=== PATIENT | female | born 1940 | race Caucasian/White ===

== ENCOUNTER 2017-04-02 08:57 | Inpatient (IN) | payer MEDICARE ==
[2017-04-02] MEDS ORDERED: SODIUM CHLORIDE 0.9% 1,000 ML IV STA ×2 (09:10→12:00)
[2017-04-02 09:32] LABS: Glucose,Whole Blood 115 mg/dL (75-99)
--- NOTE | 2017-04-02 09:33 | ED ---
General Adult HPI - General Chief complaint: Syncope Stated complaint: SYNCOPE Time Seen by Provider: 04/02/17 08:59 Source: patient, family, RN notes reviewed, old records reviewed Mode of arrival: wheelchair Limitations: no limitations - History of Present Illness Initial comments: This is a 77-year-old female the ER for evaluation. This patient presents for evaluation regarding syncopal event. Patient has no prior history of syncope, had no complaints other today, currently denies headache chest pain shortness of breath or bowel pain. Normocephalic. No sick contacts and no prior episodes of the same. Patient states she just woke up on the ground. - Related Data Home Medications Medication Instructions Recorded Confirmed Ezetimibe [Zetia] 10 mg PO DAILY 04/02/17 04/02/17 Irbesartan [Avapro] 150 mg PO DAILY 04/02/17 04/02/17 Levothyroxine Sodium [Tirosint] 25 mcg PO DAILY 04/02/17 04/02/17 Pravastatin Sodium [Pravachol] 80 mg PO HS 04/02/17 04/02/17 cycloSPORINE 0.05% OPHTH SOLN 1 applicator BOTH EYES BID 04/02/17 04/02/17 [Restasis] sitaGLIPtin PHOSPHATE [Januvia] 100 mg PO DAILY 04/02/17 04/02/17 Allergies Allergy/AdvReac Type Severity Reaction Status Date / Time No Known Allergies Allergy Verified 04/02/17 09:41 Review of Systems ROS Statement: Those systems with pertinent positive or pertinent negative responses have been documented in the HPI. ROS Other: All systems not noted in ROS Statement are negative. Past Medical History Past Medical History: Hyperlipidemia, Hypertension History of Any Multi-Drug Resistant Organisms: None Reported Past Surgical History: Hysterectomy Past Psychological History: No Psychological Hx Reported Smoking Status: Never smoker Past Alcohol Use History: Rare Past Drug Use History: None Reported General Exam Limitations: no limitations General appearance: alert, in no apparent distress Head exam: Present: atraumatic, normocephalic, normal inspection Eye exam: Present: normal appearance, PERRL, EOMI. Absent: scleral icterus, conjunctival injection, periorbital swelling ENT exam: Present: normal exam, mucous membranes moist Neck exam: Present: normal inspection. Absent: tenderness, meningismus, lymphadenopathy Respiratory exam: Present: normal lung sounds bilaterally. Absent: respiratory distress, wheezes, rales, rhonchi, stridor Cardiovascular Exam: Present: regular rate, normal rhythm, normal heart sounds. Absent: systolic murmur, diastolic murmur, rubs, gallop, clicks GI/Abdominal exam: Present: soft, normal bowel sounds. Absent: distended, tenderness, guarding, rebound, rigid Extremities exam: Present: normal inspection, full ROM, normal capillary refill. Absent: tenderness, pedal edema, joint swelling, calf tenderness Back exam: Present: normal inspection Neurological exam: Present: alert, oriented X3, CN II-XII intact Psychiatric exam: Present: normal affect, normal mood Skin exam: Present: warm, dry, intact, normal color. Absent: rash Course Vital Signs 04/02/17 04/02/17 08:58 10:30 Temperature 97.5 F L 98.0 F Pulse Rate 66 66 Respiratory 16 14 Rate Blood Pressure 175/69 138/62 O2 Sat by Pulse 96 98 Oximetry - Reevaluation(s) Reevaluation #1: 04/02/17 12:04 Patient without syncopal event complaint here emergency room EKG Findings - EKG Comments: EKG Findings:: EKG shows normal sinus rhythm bifascicular block rate of 66, WV 177, QRS 116, QTC 457 Medical Decision Making - Medical Decision Making 37 female he has a evaluation of this syncopal event. No PE, no causative agent reason for syncope found. Patient will be admitted for IV hydration treatment of urinary tract infection evaluation of CT findings - Lab Data Result diagrams: 04/02/17 09:33 04/02/17 09:33 Lab Results 04/02/17 04/02/17 04/02/17 Range/Units 09:11 09:33 09:33 WBC 7.8 (3.8-10.6) k/uL RBC 4.41 (3.80-5.40) m/uL Hgb 14.0 (11.4-16.0) gm/dL Hct 40.3 (34.0-46.0) % MCV 91.4 (80.0-100.0) fL MCH 31.7 (25.0-35.0) pg MCHC 34.7 (31.0-37.0) g/dL RDW 13.3 (11.5-15.5) % Plt Count 287 (150-450) k/uL Neutrophils % 80 % Lymphocytes % 12 % Monocytes % 5 % Eosinophils % 1 % Basophils % 0 % Neutrophils # 6.2 (1.3-7.7) k/uL Lymphocytes # 0.9 L (1.0-4.8) k/uL Monocytes # 0.4 (0-1.0) k/uL Eosinophils # 0.1 (0-0.7) k/uL Basophils # 0.0 (0-0.2) k/uL PT (9.0-12.0) sec INR (<1.2) APTT (22.0-30.0) sec D-Dimer (<0.60) mg/L FEU Sodium (137-145) mmol/L Potassium (3.5-5.1) mmol/L Chloride (98-107) mmol/L Carbon Dioxide (22-30) mmol/L Anion Gap mmol/L BUN (7-17) mg/dL Creatinine (0.52-1.04) mg/dL Est GFR (MDRD) Af Amer (>60 ml/min/1.73 sqM) Est GFR (MDRD) Non-Af (>60 ml/min/1.73 sqM) Glucose (74-99) mg/dL POC Glucose (mg/dL) 115 H (75-99) mg/dL POC Glu [employer] Fueling Supervisor ID Andrzej, Donna Calcium (8.4-10.2) mg/dL Phosphorus (2.5-4.5) mg/dL Magnesium (1.6-2.3) mg/dL Total Bilirubin (0.2-1.3) mg/dL AST (14-36) U/L ALT (9-52) U/L Alkaline Phosphatase (38-126) U/L Total Creatine Kinase 67 (30-135) U/L CK-MB (CK-2) 1.6 (0.0-2.4) ng/mL CK-MB (CK-2) Rel Index 2.4 Troponin I <0.012 (0.000-0.034) ng/mL Total Protein (6.3-8.2) g/dL Albumin (3.5-5.0) g/dL Urine Color Urine Appearance (Clear) Urine pH (5.0-8.0) Ur Specific [place] (1.001-1.035) Urine Protein (Negative) Urine Glucose (UA) (Negative) Urine Ketones (Negative) Urine Blood (Negative) Urine Nitrite (Negative) Urine Bilirubin (Negative) Urine Urobilinogen (<2.0) mg/dL Ur Leukocyte Esterase (Negative) Urine RBC (0-5) /hpf Urine WBC (0-5) /hpf Ur Squamous Epith Cells (0-4) /hpf Urine Mucus (None) /hpf 04/02/17 04/02/17 04/02/17 Range/Units 09:33 09:33 10:33 WBC (3.8-10.6) k/uL RBC (3.80-5.40) m/uL Hgb (11.4-16.0) gm/dL Hct (34.0-46.0) % MCV (80.0-100.0) fL MCH (25.0-35.0) pg MCHC (31.0-37.0) g/dL RDW (11.5-15.5) % Plt Count (150-450) k/uL Neutrophils % % Lymphocytes % % Monocytes % % Eosinophils % % Basophils % % Neutrophils # (1.3-7.7) k/uL Lymphocytes # (1.0-4.8) k/uL Monocytes # (0-1.0) k/uL Eosinophils # (0-0.7) k/uL Basophils # (0-0.2) k/uL PT 10.4 (9.0-12.0) sec INR 1.0 (<1.2) APTT 22.0 (22.0-30.0) sec D-Dimer 5.61 H (<0.60) mg/L FEU Sodium 136 L (137-145) mmol/L Potassium 3.9 (3.5-5.1) mmol/L Chloride 100 (98-107) mmol/L Carbon Dioxide 28 (22-30) mmol/L Anion Gap 8 mmol/L BUN 15 (7-17) mg/dL Creatinine 0.60 (0.52-1.04) mg/dL Est GFR (MDRD) Af Amer >60 (>60 ml/min/1.73 sqM) Est GFR (MDRD) Non-Af >60 (>60 ml/min/1.73 sqM) Glucose 98 (74-99) mg/dL POC Glucose (mg/dL) (75-99) mg/dL POC Glu [employer]actor Fueling Supervisor ID Calcium 8.9 (8.4-10.2) mg/dL Phosphorus 3.7 (2.5-4.5) mg/dL Magnesium 2.0 (1.6-2.3) mg/dL Total Bilirubin 0.4 (0.2-1.3) mg/dL AST 20 (14-36) U/L ALT 33 (9-52) U/L Alkaline Phosphatase 56 (38-126) U/L Total Creatine Kinase (30-135) U/L CK-MB (CK-2) (0.0-2.4) ng/mL CK-MB (CK-2) Rel Index Troponin I (0.000-0.034) ng/mL Total Protein 6.5 (6.3-8.2) g/dL Albumin 3.9 (3.5-5.0) g/dL Urine Color Light Yellow Urine Appearance Clear (Clear) Urine pH 7.5 (5.0-8.0) Ur Specific [place] 1.007 (1.001-1.035) Urine Protein Negative (Negative) Urine Glucose (UA) Negative (Negative) Urine Ketones Negative (Negative) Urine Blood Negative (Negative) Urine Nitrite Negative (Negative) Urine Bilirubin Negative (Negative) Urine Urobilinogen <2.0 (<2.0) mg/dL Ur Leukocyte Esterase Large H (Negative) Urine RBC 3 (0-5) /hpf Urine WBC 18 H (0-5) /hpf Ur Squamous Epith Cells 2 (0-4) /hpf Urine Mucus Rare H (None) /hpf - Radiology Data Radiology results: report reviewed (Chest x-ray and CT chest negative for acute disease, patient does have likely masslike structures), image reviewed Disposition Clinical Impression: Vasovagal syncope, Syncope and collapse, UTI (urinary tract infection), Weakness Disposition: ADMITTED IP TO THIS [facility] Condition: Fair Referrals: Nonstaff,Physician [Primary Care Provider] - 1-2 days
[2017-04-02 09:40] LABS: Basophils % (A) 0 %; CH 31.1; CHCM 34.1; Eosinophils # (A) 0.1 k/uL (0-0.7); Eosinophils % (A) 1 %; HCT 40.3 % (34.0-46.0); HDW 2.24; Luc # (Auto) 0.15; Luc % (Auto) 2; Lymphocytes # (A) 0.9 k/uL (1.0-4.8); Lymphocytes % (A) 12 %; MCH 31.7 pg (25.0-35.0); MCHC 34.7 g/dL (31.0-37.0); MCV 91.4 fL (80.0-100.0); Mean Platelet Volume 6.8; Monocytes # (A) 0.4 k/uL (0-1.0); Monocytes % (A) 5 %; Neutrophils # (A) 6.2 k/uL (1.3-7.7); Neutrophils % (A) 80 %; RBC 4.41 m/uL (3.80-5.40); RDW 13.3 % (11.5-15.5); WBC 7.8 k/uL (3.8-10.6); WBC (Perox) 7.64
[2017-04-02 09:49] LABS: ALT 33 U/L (9-52); AST 20 U/L (14-36); Alkaline Phosphatase 56 U/L (38-126); Anion Gap 8 mmol/L; Blood Urea Nitrogen 15 mg/dL (7-17); Calcium 8.9 mg/dL (8.4-10.2); Carbon Dioxide 28 mmol/L (22-30); Chloride 100 mmol/L (98-107); Glucose 98 mg/dL (74-99); Non-African American GFR(MDRD) >60 (>60 ml/min/1.73 sqM); Phosphorous 3.7 mg/dL (2.5-4.5); Potassium 3.9 mmol/L (3.5-5.1); Sodium 136 mmol/L (137-145); Total Bilirubin 0.4 mg/dL (0.2-1.3); Total Protein 6.5 g/dL (6.3-8.2)
[2017-04-02 09:56] LABS: Prothrombin Time 10.4 sec (9.0-12.0)
--- NOTE | 2017-04-02 09:58 | XR ---
EXAMINATION TYPE: XR chest 2V DATE OF EXAM: 04/02/2017 COMPARISON: NONE INDICATION: Weakness, syncope TECHNIQUE: Frontal and lateral views of the chest are obtained. FINDINGS: The heart size is normal. The pulmonary vasculature is normal. Large calcified lymph nodes. He present in the right mediastinum. Suspicious infiltrates in the lung bonner are not identified.. IMPRESSION: 1. No acute pulmonary process. 2. Calcified lymphadenopathies mediastinum
[2017-04-02 10:03] LABS: Creatine Kinase 67 U/L (30-135)
[2017-04-02 10:14] LABS: Creatine Kinase MB 1.6 ng/mL (0.0-2.4); Troponin I <0.012 ng/mL (0.000-0.034)
[2017-04-02] MEDS ORDERED: RX INFO: IV CONTRAST WAS GIVEN 1 EACH MISC MISCELLANE PRN (10:39)
[2017-04-02 10:51] LABS: Appearance,Urine Clear (Clear); Bilirubin,Urine Negative (Negative); Glucose,Urine (UA) Negative (Negative); Ketones,Urine Negative (Negative); Leukocyte Esterase,Urine Large (Negative); Mucus,Urine Rare /hpf; Nitrite,Urine Negative (Negative); PH, Urine 7.5 (5.0-8.0); Particle Count 3567; Protein,Urine Negative (Negative); RBC,Urine 3 /hpf (0-5); Specific Gravity,Urine 1.007 (1.001-1.035); Squamous Epithelial Cell,Urine 2 /hpf (0-4); UA Billing (MACRO vs. MICRO) MICRO; Urobilinogen,Urine <2.0 mg/dL (<2.0); WBC,Urine 18 /hpf (0-5)
--- NOTE | 2017-04-02 11:55 | CT ---
EXAMINATION TYPE: CT angio chest DATE OF EXAM: 04/02/2017 COMPARISON: NONE HISTORY: syncope CT DLP: 394 mGycm CONTRAST: CT chest with contrast and 3D reconstruction with MIP imaging is performed with IV Contrast, patient injected with 100 mL of Omnipaque 350. Contrast-enhanced CT of the chest was performed through the course of the pulmonary arteries with catherine g and mediastinal window settings submitted. 3D reconstruction with MIP imaging was also performed. PULMONARY ARTERIES: The pulmonary arteries and their major tributaries are patent. I do not see roney dence for sizable filling defect to suggest pulmonary embolic process. LUNGS: The lungs are clear and free of infiltrate. Scattered dependent atelectasis is noted. No pulmo nary nodule or mass is detected. No pleural effusion. MEDIASTINUM: Thoracic aorta is of normal caliber . The heart is not enlarged. No evidence for media stinal mass. No mediastinal lymph nodes greater than 1cm. HILAR STRUCTURES: No evidence for mass. No hilar lymph nodes greater than 1 cm. UPPER ABDOMEN: Masslike area within the central portion of the liver. Masslike area in the region of the pancreatic body measuring 3.4 cm suspicious for malignancy. Dedicated evaluation of the abdomen a nd pelvis is advised. IMPRESSION: 1. No evidence for Pulmonary embolism at this time. 2.Masslike area in the region of the pancreatic body measuring 3.4 cm suspicious for malignancy. 3.Masslike area within the central portion of the liver.
[2017-04-02] MEDS ORDERED: SODIUM CHLORIDE 0.9% 1,000 ML IV ONE (12:02)
--- NOTE | 2017-04-02 19:02 | P.GSCN ---
History of Present Illness Consult date: 04/02/17 Reason for Consult: Abdominal pain History of present illness: This a 77-year-old female with Dr. Devendra Fernandez service. Patient was admitted due to syncope and fall. She was worked up found have UTI. She has some mild lower quadrant abdominal pain. She states her pain is minimal. Review of Systems - Constitutional Reports as per HPI Past Medical History Past Medical History: Hyperlipidemia, Hypertension Additional Past Medical History / Comment(s): past broken rt foot no sx just casted,polymyalgia, migraines in the past. "forgetfull at times",constipatin History of Any Multi-Drug Resistant Organisms: None Reported Past Surgical History: Hysterectomy Additional Past Surgical History / Comment(s): upper dental implants.recent sx on her gums, cosmetic sx face and eye lids, jasper cataracts, rt knee had fluid drained off of it Past Anesthesia/Blood Transfusion Reactions: No Reported Reaction Smoking Status: Never smoker - Past Family History Father Family Medical History: Myocardial Infarction (NM) Mother Family Medical History: Dementia Additional Family Medical History / Comment(s): early onset alzhiemers Medications and Allergies Home Medications Medication Instructions Recorded Confirmed Type Ezetimibe [Zetia] 10 mg PO DAILY 04/02/17 04/02/17 History Irbesartan [Avapro] 150 mg PO DAILY 04/02/17 04/02/17 History Levothyroxine Sodium [Tirosint] 25 mcg PO DAILY 04/02/17 04/02/17 History Pravastatin Sodium [Pravachol] 80 mg PO HS 04/02/17 04/02/17 History cycloSPORINE 0.05% OPHTH SOLN 1 applicator BOTH EYES BID 04/02/17 04/02/17 History [Restasis] sitaGLIPtin PHOSPHATE [Januvia] 100 mg PO DAILY 04/02/17 04/02/17 History Allergies Allergy/AdvReac Type Severity Reaction Status Date / Time No Known Allergies Allergy Verified 04/02/17 09:41 Surgical - Exam Vital Signs Temp Pulse Resp BP Pulse Ox 97.5 F L 66 16 175/69 96 04/02/17 08:58 04/02/17 08:58 04/02/17 08:58 04/02/17 08:58 04/02/17 08:58 - General well developed, no distress - Eyes PERRL - Neck no masses - Respiratory normal expansion - Cardiovascular Rhythm: regular - Abdomen Abdomen: soft, non tender Results - Labs 04/02/17 09:33 04/02/17 09:33 Abnormal Lab Results - Last 24 Hours (Table) 04/02/17 04/02/17 04/02/17 Range/Units 09:11 09:33 09:33 Lymphocytes # 0.9 L (1.0-4.8) k/uL D-Dimer (<0.60) mg/L FEU Sodium 136 L (137-145) mmol/L POC Glucose (mg/dL) 115 H (75-99) mg/dL Ur Leukocyte Esterase (Negative) Urine WBC (0-5) /hpf Urine Mucus (None) /hpf 04/02/17 04/02/17 Range/Units 09:33 10:33 Lymphocytes # (1.0-4.8) k/uL D-Dimer 5.61 H (<0.60) mg/L FEU Sodium (137-145) mmol/L POC Glucose (mg/dL) (75-99) mg/dL Ur Leukocyte Esterase Large H (Negative) Urine WBC 18 H (0-5) /hpf Urine Mucus Rare H (None) /hpf Microbiology - Last 24 Hours (Table) 04/02/17 10:33 Urine Culture - Preliminary Urine,Voided Diabetes panel 04/02/17 Range/Units 09:33 Sodium 136 L (137-145) mmol/L Potassium 3.9 (3.5-5.1) mmol/L Chloride 100 (98-107) mmol/L Carbon Dioxide 28 (22-30) mmol/L BUN 15 (7-17) mg/dL Creatinine 0.60 (0.52-1.04) mg/dL Glucose 98 (74-99) mg/dL Calcium 8.9 (8.4-10.2) mg/dL AST 20 (14-36) U/L ALT 33 (9-52) U/L Alkaline Phosphatase 56 (38-126) U/L Total Protein 6.5 (6.3-8.2) g/dL Albumin 3.9 (3.5-5.0) g/dL Calcium panel 04/02/17 Range/Units 09:33 Calcium 8.9 (8.4-10.2) mg/dL Phosphorus 3.7 (2.5-4.5) mg/dL Albumin 3.9 (3.5-5.0) g/dL Pituitary panel 04/02/17 Range/Units 09:33 Sodium 136 L (137-145) mmol/L Potassium 3.9 (3.5-5.1) mmol/L Chloride 100 (98-107) mmol/L Carbon Dioxide 28 (22-30) mmol/L BUN 15 (7-17) mg/dL Creatinine 0.60 (0.52-1.04) mg/dL Glucose 98 (74-99) mg/dL Calcium 8.9 (8.4-10.2) mg/dL Adrenal panel 04/02/17 Range/Units 09:33 Sodium 136 L (137-145) mmol/L Potassium 3.9 (3.5-5.1) mmol/L Chloride 100 (98-107) mmol/L Carbon Dioxide 28 (22-30) mmol/L BUN 15 (7-17) mg/dL Creatinine 0.60 (0.52-1.04) mg/dL Glucose 98 (74-99) mg/dL Calcium 8.9 (8.4-10.2) mg/dL Total Bilirubin 0.4 (0.2-1.3) mg/dL AST 20 (14-36) U/L ALT 33 (9-52) U/L Alkaline Phosphatase 56 (38-126) U/L Total Protein 6.5 (6.3-8.2) g/dL Albumin 3.9 (3.5-5.0) g/dL Assessment and Plan Plan: Abdominal pain mostly related to UTI. Patient is doing better. She'll be observed. Her UTIs being treated with antibiotics.
--- NOTE | 2017-04-02 19:16 | ECHOF ---
Referral Reason:syncope MEASUREMENTS -------- HEIGHT: 165.1 cm WEIGHT: 50.8 kg BP: IVSd: 1.2 cm (0.6 - 1.1) LVIDd: 3.9 cm (3.9 - 5.3) LVPWd: 1.2 cm (0.6 - 1.1) IVSs: 1.5 cm LVIDs: 2.3 cm LVPWs: 1.2 cm LA Diam: 3.8 cm (2.7 - 3.8) Ao Diam: 3.0 cm (2.0 - 3.7) AV Cusp: 1.5 cm (1.5 - 2.6) LA Diam: 4.1 cm (2.7 - 3.8) MV EXCURSION: 19.783 mm (> 18.000) MV EF SLOPE: 40 mm/s (70 - 150) EPSS: 1.3 cm MV E Marco: 0.57 m/s MV DecT: 328 ms MV A Marco: 0.92 m/s MV E/A Ratio: 0.62 AR PHT: 590 ms RAP: 5.00 mmHg RVSP: 24.98 mmHg FINDINGS -------- Sinus rhythm. This was a technically adequate study. The left ventricular size is normal. There is mild concentric left ventricular hypertrophy. Overall left ventricular systolic function is normal with, an EF between 55 - 60 %. The right ventricle is normal in size. The left atrial size is normal. The right atrial size is normal. The aortic valve is trileaflet and appears structurally normal. There is mild aortic regurgitation. Mild mitral annular calcification present. Mild mitral regurgitation is present. Mild tricuspid regurgitation present. There is no evidence of pulmonary hypertension. The right ventricular systolic pressure, as measured by Doppler, is 24.98mmHg. Trace/mild (physiologic) pulmonic regurgitation. The aortic root size is normal. There is no pericardial effusion. CONCLUSIONS -------- 1. Sinus rhythm. 2. Mild tricuspid regurgitation present. 3. There is no evidence of pulmonary hypertension. 4. Trace/mild (physiologic) pulmonic regurgitation. 5. The aortic root size is normal. 6. There is no pericardial effusion. 7. This was a technically adequate study. 8. There is mild concentric left ventricular hypertrophy. 9. Overall left ventricular systolic function is normal with, an EF between 55 - 60 %. 10. The left atrial size is normal. 11. The aortic valve is trileaflet and appears structurally normal. 12. There is mild aortic regurgitation. 13. Mild mitral annular calcification present. 14. Mild mitral regurgitation is present. BEAD FORMING MACHINE OPERATOR: Adriane Lopez RDCS
--- NOTE | 2017-04-02 19:43 | XR ---
EXAMINATION TYPE: XR knee complete RT DATE OF EXAM: 04/02/2017 COMPARISON: NONE HISTORY: Pain TECHNIQUE: 3 views FINDINGS: There is calcification of the menisci. There is spurring of femoral and tibial condyles. I see no fracture nor dislocation. There is small knee joint effusion. IMPRESSION: Osteoarthritis and pseudogout. No fracture.
--- NOTE | 2017-04-02 19:49 | XR ---
EXAMINATION TYPE: XR hand complete RT DATE OF EXAM: 04/02/2017 COMPARISON: NONE HISTORY: Pain TECHNIQUE: 3 views FINDINGS: There is irregular appearance of the ulnar styloid process suggestive of nondisplaced fract ure. There is moderate spurring at the first carpometacarpal joint. There is mild narrowing of IP dominic nts with spurring. There are no erosions. There is granular cartilage calcification. IMPRESSION: Osteoarthritic changes. Possible nondisplaced fracture ulnar styloid process. No displace d fracture seen.
--- NOTE | 2017-04-02 20:26 | CT ---
EXAMINATION TYPE: CT brain wo con DATE OF EXAM: 04/02/2017 COMPARISON: NONE HISTORY: Fell today. Neck pain headache CT DLP: mGycm Automated exposure control for dose reduction was used. FINDINGS: There is cerebral cortical atrophy. There is no mass effect nor midline shift. There is no sign of in tracranial hemorrhage. There is calcification in the left maxillary sinus. Calvarium is intact. IMPRESSION: CEREBRAL ATROPHY. NO ACUTE INTRACRANIAL ABNORMALITY. DENSE CALCIFICATION IN THE PARTLY VISUALIZED LEF T MAXILLARY SINUS CONSISTENT WITH AN OSTEOMA.
[2017-04-02] MEDS: HYDROcodone/APAP 5-325MG 1 EACH TAB PO PRN (20:30)
--- NOTE | 2017-04-02 20:45 | CT ---
EXAMINATION TYPE: CT CervThoracic spine wo con DATE OF EXAM: 04/02/2017 COMPARISON: NONE HISTORY: Fall with neck pain and back pain CT DLP: mGycm Automated exposure control for dose reduction was used. FINDINGS: The cervical and thoracic vertebra have normal alignment. There is no subluxation. There is degenerat brandi disc space narrowing throughout the thoracic and cervical spine. I see no definite compression fr acture. I see no significant narrowing of the cervical and thoracic spinal canal. There is no thoraci c paraspinal mass. I see no focal bone destruction. The posterior elements are intact. The skull base appears intact. IMPRESSION: MODERATE MULTILEVEL SPONDYLOSIS IN THE CERVICAL AND THORACIC SPINE. NO COMPRESSION FRACTURE SEEN. NO FRACTURE SEEN. CALCIFIED SPLENIC GRANULOMATA ARE NOTED. NONOBSTRUCTING MEDULLARY RENAL CALCIFICATION IS NOTED THAT C OULD RELATE TO MILD NEPHROCALCINOSIS. Interstitial infiltrates and atelectasis is noted at both lung bases.
[2017-04-02] MEDS: PRAVASTATIN SODIUM 80 MG TAB PO SCH (22:15)
[2017-04-02] MEDS: cycloSPORINE 0.05% OPHTH 0.4 ML DROPERETTE BOTH EYES SCH (22:15)
--- NOTE | 2017-04-02 22:34 | HP ---
CHIEF COMPLAINT: Irjsczr[age]ddhqr-efst-old white female with syncope. HISTORY OF PRESENT ILLNESS: This is a 77-year-old white female admitted through the ER with a syncopal event and prior history of syncope. She denied any chest pain or shortness of breath. No prior ( ) she just woke up on the ground. She will need to be worked up for a seizure. She was also found in the ER to have possible pancreatic mass with a liver mass. Home medications include: 1. Zetia. 2. Avapro. 3. Tirosint. 4. Pravachol. 5. Cyclosporin. 6. Januvia. ALLERGIES: NEGATIVE. Fourteen-point review of systems negative except as mentioned in HPI. PAST MEDICAL HISTORY: 1. Dyslipidemia. 2. Hypertension. 3. Diabetes mellitus. 4. Prior hysterectomy. Never smoked. No alcohol. PHYSICAL EXAM: Vital signs are reviewed. GENERAL: Alert, oriented x3. OPHTHALMOLOGIC: Pupils equal, round and reactive to light and accommodation. ENT: External ear canals normal. PSYCH: Negative meningeal signs. Fair mood and affect. RESPIRATORY: Normal lung sounds. No wheezes, rhonchi or stridor. HEART: Regular rate and rhythm. No ( ) sounds or murmurs. GI: Soft. Normal bowel sounds ( ) guarding or rigidity. EXTREMITIES: Full range of motion ( ) normal to inspection. NEUROLOGIC: Alert and oriented x3. SKIN: Warm, dry, intact. Temperature 97 to 98. Pulse in 60s. Respiration 14 to 16. Blood pressure 130s to 170s over 62 to 69. Oxygen 96% to 98% on room air. EKG shows sinus rhythm. CT scan of the chest is negative for PE but positive for pancreatic mass. She also had a possible urinary tract infection. White count 7.8, hemoglobin 14.0. Sodium 136, potassium 3.9. Glucose 115. Troponins are negative. D-dimer is 5.6 with a negative PE on the CT scan. UA shows large leukocyte esterase, 18 white cells, ( ) red cells. LFTs are normal. Possible mass-like structure in the liver. ASSESSMENT: 1. Vasovagal syncope. Rule out seizure. 2. Urinary tract infection. Treat with IV antibiotics. 3. Generalized weakness. 4. Possible liver mass. 5. Possible pancreatic mass. Surgical consult is pending. Will order CA19.9, alpha fetoprotein. Await surgical consultation as well as cardiology consultation for syncope. MTDD
[2017-04-03] MEDS: HYDROcodone/APAP 5-325MG 1 EACH TAB PO PRN ×3 (02:10→15:36)
[2017-04-03] MEDS ORDERED: ENOXAPARIN 40 MG/0.4 ML SYRINGE SQ SCH (09:00)
[2017-04-03] MEDS: LEVOTHYROXINE 25 MCG TAB PO SCH (09:07)
[2017-04-03] MEDS: LINAGLIPTIN 5 MG TABLET PO SCH (09:11)
[2017-04-03] MEDS: EZETIMIBE 10 MG TAB PO SCH (09:11)
[2017-04-03] MEDS: LOSARTAN 50 MG TAB PO SCH (09:11)
[2017-04-03] MEDS: CHLORTHALIDONE 25 MG TAB PO SCH (09:12)
[2017-04-03] MEDS: cycloSPORINE 0.05% OPHTH 0.4 ML DROPERETTE BOTH EYES SCH ×2 (09:12→20:56)
--- NOTE | 2017-04-03 09:21 | US ---
EXAMINATION TYPE: US abdomen complete DATE OF EXAM: 04/02/2017 COMPARISON: NONE CLINICAL HISTORY: liver/pancreatic mass. EXAM MEASUREMENTS: Liver Length: 16.7 cm Gallbladder Wall: 0.2 cm CBD: 0.3 cm Spleen: 10.3 cm Right Kidney: 10.5 x 3.7 x 5.3 cm Left Kidney: 11.5 x 4.7 x 5.1 cm Pancreas: Heterogenous lesion in the neck measuring approximately 3.8 x 3.7 x 2.5 cm Liver: Hypoechoic lesion noted in the liver measuring approximately 4.0 x 3.6 x 3.0 cm Gallbladder: wnl Evidence for sonographic Wiley's sign: No CBD: wnl Spleen: multiple echogenic calcifications noted Right Kidney: wnl Left Kidney: wnl Upper IVC: wnl Abd Aorta: wnl The liver is homogenous with a hypoechoic lesion measuring 4.0 x 3.6 x 3.0 cm. The intrahepatic port ion of the IVC and proximal abdominal aorta are within normal limits. There is no evidence of cholel ithiasis. Common bile duct is unremarkable. The visualized portions of the pancreas are homogenous except for one lesion that is heterogenous measuring 3.8 x 3.7 x 2.5 cm. The spleen has multiple ech ogenic calcifications. Kidneys are symmetric and free of hydronephrosis. No renal lesions are seen. Impression: 1. Hepatic mass is noted. Orally for possible metastatic disease or primary hepatocellular carcinoma. 2. Mass with central area of cavitation in the region of the pancreatic neck. 3. Splenic granulomas.
--- NOTE | 2017-04-03 10:49 | P.CRDCN ---
History of Present Illness Consult date: 04/03/17 History of present illness: This is a 77-year-old female with history of hypertensive cardiovascular disease who was admitted to the hospital following a syncopal episode. Apparently she was sitting on a high stool and was doing a puzzle. She apparently was done with possibly one was in the process of getting up. Next thing she knew was she felt the ground and sustained some soft tissue injuries. She doesn't recall having any chest pain, shortness of breath, dizziness prior to this incident. However, over the last couple of weeks patient has been having some lightheadedness, especially when she gets up quickly. Since admission here patient was mostly in sinus rhythm with evidence of right bundle- branch block and also left axis deviation. During the night patient developed high degree AV block with pauses of about 24 seconds with nonconducted P waves. At times it appears to be Wenckebach phenomenon. Since admission patient also had computed tomography scan of the chest which was negative for pulmonary emboli. However, there was a suspicious pancreatic mass. Patient had ultrasound of the abdomen this morning and there appears to be some suspicion lesion in the pancreas and also in the liver. Her electrolytes are within normal limits Review of Systems REVIEW OF SYSTEMS: CONSTITUTIONAL:. Patient is doing well. No complaints of fever or chills EYES: Denies diplopia, blurring of vision EARS, NOSE, MOUTH, THROAT: Denies headaches, denies sore throat. CARDIOVASCULAR: Per HPI RESPIRATORY: Denies shortness of breath, denies cough. GASTROINTESTINAL: Complaining of some abdominal discomfort GENITOURINARY: Denies hematuria, denies infections. MUSKULOSKELETAL: Denies pain, denies swelling. Denies any cramps or claudication INTEGUMENTARY: Denies rash, denies eczema. NEUROLOGICAL: Denies focal weakness, or visual disturbance. Denies any dizziness or syncope PSYCHIATRIC: Denies anxiety, denies depression. HEMATOLOGIC/LYMPHATIC: Denies any bleeding, denies enlarged lymph nodes. Past Medical History Past Medical History: Hyperlipidemia, Hypertension Additional Past Medical History / Comment(s): past broken rt foot no sx just casted,polymyalgia, migraines in the past. "forgetfull at times",constipatin History of Any Multi-Drug Resistant Organisms: None Reported Past Surgical History: Hysterectomy Additional Past Surgical History / Comment(s): upper dental implants.recent sx on her gums, cosmetic sx face and eye lids, jasper cataracts, rt knee had fluid drained off of it Past Anesthesia/Blood Transfusion Reactions: No Reported Reaction Smoking Status: Never smoker - Past Family History Father Family Medical History: Myocardial Infarction ([place]) Mother Family Medical History: Dementia Additional Family Medical History / Comment(s): early onset alzhiemers Medications and Allergies Home Medications Medication Instructions Recorded Confirmed Type Ezetimibe [Zetia] 10 mg PO DAILY 04/02/17 04/02/17 History Irbesartan [Avapro] 150 mg PO DAILY 04/02/17 04/02/17 History Levothyroxine Sodium [Tirosint] 25 mcg PO DAILY 04/02/17 04/02/17 History Pravastatin Sodium [Pravachol] 80 mg PO HS 04/02/17 04/02/17 History cycloSPORINE 0.05% OPHTH SOLN 1 applicator BOTH EYES BID 04/02/17 04/02/17 History [Restasis] sitaGLIPtin PHOSPHATE [Januvia] 100 mg PO DAILY 04/02/17 04/02/17 History Allergies Allergy/AdvReac Type Severity Reaction Status Date / Time No Known Allergies Allergy Verified 04/02/17 09:41 Physical Exam Vitals: Vital Signs Temp Pulse Pulse Resp BP BP Pulse Ox 04/03/17 07:00 97.4 F L 74 20 117/56 95 04/02/17 23:06 68 18 04/02/17 23:00 98 F 85 16 120/57 95 04/02/17 15:00 97.9 F 68 18 154/70 98 04/02/17 12:57 97.6 F 67 18 140/63 96 Intake and Output 04/02/17 04/03/17 04/03/17 22:59 06:59 14:59 Intake Total 100 800 Balance 100 800 Intake: Intake, IV Titration 100 800 Amount Sodium Chloride 0.9% 1, 100 800 000 ml @ 100 mls/hr IV . Q10H ONE Rx#:[id number] Other: Voiding Method Toilet Toilet # Voids 1 GENERAL EXAM: Patient is alert and oriented and doesn't appear to be in any acute distress HEENT: Normocephalic. Normal reaction of pupils, equal size, normal range of extraocular motion. No erythema or exudates in the throat. NECK: No masses, no nuchal rigidity. CHEST: No chest wall deformity. LUNGS: Equal air entry with no crackles or wheeze. HEART: S1 and S2 normal with no audible mumurs or gallops. Regular rhythm, femorals equal on both sides.. ABDOMEN: Deferred. SKIN: No rashes CENTRAL NERVOUS SYSTEM: No focal deficits. EXTREMITIES: No cyanosis, clubbing or edema. Results 04/02/17 09:33 04/02/17 09:33 Current Medications Generic Name Dose Route Start Last Admin Trade Name Freq PRN Reason Stop Dose Admin Hydrocodone Bitart/Acetaminophen 1 each 04/02/17 18:22 04/03/17 09:05 [place] 5-325 PO 1 each Q6HR PRN Administration Pain Chlorthalidone 25 mg 04/03/17 09:00 04/03/17 09:12 [place] PO 25 mg DAILY RENEA Administration Cyclosporine 1 drops 04/02/17 21:00 04/03/17 09:12 Restasis 0.05% Ophth Soln BOTH EYES 1 drops BID RENEA Administration Ezetimibe 10 mg 04/03/17 09:00 04/03/17 09:11 Zetia PO 10 mg DAILY RENEA Administration Enoxaparin Sodium 40 mg 04/03/17 09:00 04/03/17 09:11 Lovenox SQ 40 mg DAILY RENEA Administration Ceftriaxone Sodium 1,000 mg/ 50 mls @ 100 mls/hr 04/03/17 12:00 Sodium Chloride IVPB Q24H RENEA Ibuprofen 800 mg 04/02/17 18:22 Motrin PO TID PRN Pain Levothyroxine Sodium 25 mcg 04/03/17 06:30 04/03/17 09:07 Synthroid PO 25 mcg DAILY@0630 RENEA Administration Linagliptin 5 mg 04/03/17 09:00 04/03/17 09:11 Tradjenta PO 5 mg DAILY RENEA Administration Losartan Potassium 50 mg 04/03/17 09:00 04/03/17 09:11 Cozaar PO 50 mg DAILY RENEA Administration Miscellaneous Information 1 each 04/02/17 10:39 04/02/17 12:54 Rx Info: Iv Contrast Was Given MISCELLANE 04/04/17 10:39 1 each DAILY PRN Administration Per Protocol Pravastatin Sodium 80 mg 04/02/17 21:00 04/02/17 22:15 Pravachol PO 80 mg HS RENEA Administration Intake and Output 04/02/17 04/03/17 04/03/17 22:59 06:59 14:59 Intake Total 100 800 Balance 100 800 Intake: Intake, IV Titration 100 800 Amount Sodium Chloride 0.9% 1, 100 800 000 ml @ 100 mls/hr IV . Q10H ONE Rx#:[id number] Other: Voiding Method Toilet Toilet # Voids 1 04/02/17 09:33 04/02/17 09:33 EKG Interpretations (text) Sinus rhythm with a right bundle branch block and left axis deviation Assessment and Plan (1) Complete right bundle branch block Status: Acute (2) Syncope and collapse Status: Acute (3) Left axis deviation Status: Acute (4) High degree atrioventricular block Status: Acute (5) Liver masses Status: Acute (6) Pancreatic mass Status: Acute Plan: Her syncope appears to be cardiac in nature. Could be secondary to significant bradycardia or high degree AV block. In the presence of a right bundle and left axis deviation, patient may be a candidate for permanent pacemaker implantation. However, if it is not agreeable, a loop recorder insertion may be constricted for monitoring. Patient also has findings of a pancreatic and hepatic mass that needs to be investigated. We'll also check for postural hypotension. An echocardiogram to be done.
[2017-04-03 14:20] VITALS: BMI 21.9
--- NOTE | 2017-04-03 15:41 | MR ---
EXAMINATION TYPE: MR liver wo/w con DATE OF EXAM: 04/03/2017 COMPARISON: NONE HISTORY: Attn to liver and pancreas, headache, dizziness, abd US CONTRAST: Standard multiplanar, multisequence MRI departmental protocol utilizing 12 mL intravenous MultiHance gadolinium contrast. FINDINGS: There is a oval-shaped 4 x 2.5 cm mass in the anterior aspect of the body of the pancreas. There is some peripheral enhancement with the contrast. Pancreatic duct is not dilated. There is a 6 x 3.5 cm lobulated enhancing mass in the right lobe of the liver posterior to the tracie hepatis. The bile ducts are not dilated. Gallbladder appears normal. Spleen has normal size. Kidneys show normal size and contour. There is no hydronephrosis. There is no sign of retroperitoneal adenopathy. There is a 1.2 cm area of enhancement in the central right lobe of the liver. IMPRESSION: Mass in the pancreas is suspicious for primary tumor. Large mass in the right lobe of the liver and smaller secondary mass are suggestive of metastatic dis ease. No dilated ducts.
[2017-04-03] MEDS: IBUPROFEN 800 MG TAB PO PRN (17:39)
[2017-04-03] MEDS: PRAVASTATIN SODIUM 80 MG TAB PO SCH (20:57)
[2017-04-03] MEDS ORDERED: ONDANSETRON 4 MG/2 ML VIAL IVP PRN (22:27)
--- NOTE | 2017-04-04 02:09 | NM ---
NM LIVER BLOOD POOL IMAGING HISTORY: Right hepatic lobe mass, pancreatic mass, assess for possible hepatic hemangioma. TECHNIQUE: Liver blood pool imaging was performed with technetium-99m- labeled red blood cells. One vial of pyrophosphate was administered intravenously followed 30 minutes later by the intravenous administration of 27.5 mCi of sodium pertechnetate. Early dynamic blood flow images are acquired followed by delayed blood pool planar and SPECT images of the liver. COMPARISON: MRI abdomen 04/03/17 FINDINGS: Early dynamic blood flow images are unremarkable. Delayed blood pool planar and SPECT images demonstrate no convincing evidence of focally increased or decreased tracer activity in the liver. IMPRESSION: No scintigraphic findings to suggest hemangioma in the liver. Further evaluation with PET or liver protocol CT may be helpful.
[2017-04-04] MEDS: LEVOTHYROXINE 25 MCG TAB PO SCH (06:09)
[2017-04-04 07:06] LABS: INR 1.1 (<1.2); Partial Thromboplastin Time 22.3 sec (22.0-30.0); Prothrombin Time 10.6 sec (9.0-12.0)
[2017-04-04] MEDS: EZETIMIBE 10 MG TAB PO SCH (09:13)
[2017-04-04] MEDS: LOSARTAN 50 MG TAB PO SCH (09:13)
[2017-04-04] MEDS: LINAGLIPTIN 5 MG TABLET PO SCH (09:13)
[2017-04-04] MEDS: CHLORTHALIDONE 25 MG TAB PO SCH (09:13)
[2017-04-04] MEDS: cycloSPORINE 0.05% OPHTH 0.4 ML DROPERETTE BOTH EYES SCH ×2 (09:13→21:12)
--- NOTE | 2017-04-04 10:18 | P.PN ---
Progress Note - Text The patient has undergone some radiographic testing yesterday. The patient has a large mass in the right lower liver as well as a pancreatic mass which was thought to be the primary. There is no evidence of a hepatic hemangioma. Apparently patient is undergoing a liver biopsy today. On exam her vital signs are stable. Abdomen soft. His metastatic pancreas cancer with spread to liver. Patient will be following up with her medical doctor at [facility] [place].
--- NOTE | 2017-04-04 10:21 | PN ---
SUBJECTIVE: 77-year-old white female with syncope and UTI. She was found on CAT scan to develop DVT due to elevated d-dimer. Negative for PE but found to have a liver mass and a pancreatic mass. Ultrasound confirmed these findings of the abdomen. She underwent MRI of the liver and pancreas tonight which showed liver mass, solid in nature, 4 cm with a primary pancreatic tumor 6 cm. Discussed the case with Dr. Holley and multiple family members about transferring the patient versus staying here for needle biopsy of the liver mass on Wednesday. Dr. Holley agreed to do the needle biopsy on Wednesday and oncology consult is placed. She will follow up after biopsy with the primary care physician down in [place], [place] and I will send pathology to the physician's office. PSYCH: Fair mood and affect. CARDIOVASCULAR: S1/S2. LUNGS: Clear. GI: Soft. Labs and consults all reviewed with the patient. Prognosis is extremely guarded. MTDD
[2017-04-04] MEDS: IBUPROFEN 800 MG TAB PO PRN (19:56)
[2017-04-04] MEDS: PRAVASTATIN SODIUM 80 MG TAB PO SCH (21:12)
[2017-04-04 22:26] VITALS: TEMP 97
[2017-04-04] MEDS: HYDROcodone/APAP 5-325MG 1 EACH TAB PO PRN (23:36)
[2017-04-05] MEDS: IBUPROFEN 800 MG TAB PO PRN ×2 (05:36→12:51)
[2017-04-05] MEDS: LEVOTHYROXINE 25 MCG TAB PO SCH (06:08)
[2017-04-05 08:04] VITALS: BP 134/69; PULSE 63; RESP 18
[2017-04-05 08:20] LABS: Partial Thromboplastin Time 22.6 sec (22.0-30.0); Prothrombin Time 10.6 sec (9.0-12.0)
--- NOTE | 2017-04-05 09:47 | CONS ---
DATE OF SERVICE: 04/04/2017 Reason for consultation is pancreatic mass. CHIEF COMPLAINT: Tired. HISTORY OF PRESENT ILLNESS: Mrs. Calderón is a very pleasant 77-year-old lady who spent the summer in [place] and the rest of the year in [place] or [place], [place] with either her daughter or her son. She was brought into the emergency department on Wednesday because she passed out at home. As far as work-up in the emergency department she had a CT scan of the chest to rule out pulmonary emboli; however, she was found to have a suspicious liver lesion and it was negative for pulmonary emboli. She had an ultrasound of the liver which detected heterogeneous mass in the neck of the pancreas and there was also a 4 cm mass in her liver. Subsequently, she had an MRI of the liver which revealed 4 x 2.5 cm mass in the body of the pancreas and also a 6 x 3.5 cm mass in the right lobe of the liver and another smaller lesion about 1.2 cm in size. Her CBCs were unremarkable and her chemistry panel was also unremarkable. Over the last few months, the patient has been feeling light- headed. She lost her appetite and she has lost about 20 pounds. She denies any back pain, nausea or vomiting. No dysphagia, no reported melena, hematuria , hemoptysis, hematemesis or epistaxis. No skin rash or itching and no flushing in her face. Her past medical history significant for hyperlipidemia, hypertension, diabetes. PAST SURGICAL HISTORY: She has a history of hysterectomy in the past. Her home medication, she was on Zetia, Avapro, Pravachol, Januvia, cyclosporin eyedrop and levothyroxine 25 mcg daily. SOCIAL HISTORY: No history of smoking, alcohol abuse or substance abuse. REVIEW OF SYSTEMS: As stated above in the history of present illness. Otherwise, negative. ALLERGIES: There is no known drug allergy. FAMILY HISTORY: Not significant. On physical examination, she is alert and oriented x3. She does not appear to be in any acute distress. Well developed, her vital signs are temperature 97.8 , afebrile, respiration is 16, pulse is 75, and blood pressure 148/64. HEENT: Normocephalic, atraumatic, no obvious ( ). Neck is supple. Chest coarse breaths sounds bilaterally. Lungs are clear to auscultation and percussion, regular rate and rhythm. Abdomen is soft, no obvious organomegaly or mass. Bowel sounds present. Extremities with no edema. Skin reveals a few bruises on her hand. No ecchymosis or petechiae. Lymphatics, no cervical lymph node. Musculoskeletal, moving all extremities appropriately. No percussion. Denied any secondary response syndrome. LABORATORY DATA: Sodium 136, potassium 3.9, chloride 100, BUN is 15, creatinine 0.6. Liver LFT and alkaline phosphatase and bilirubin are within normal limits. Radiographic data as stated above. IMPRESSION: Clinical and radiographic pictures suggestive of pancreatic malignancy. Certain is a diagnosis which includes adenocarcinoma of the pancreas versus neuro endocrine tumor. RECOMMENDATION: 1. I discussed the above impression with the patient and her family at bedside. 2. I agree with the scheduled CT guided biopsy of the liver mass. 3. Based on biopsy results, further diagnostic and therapeutic decision will be made. In the meantime, a serum CA 19-9 level would be obtained. Thank you very much for asking me to participate in the care of this nice lady. KWAN
[2017-04-05] MEDS: cycloSPORINE 0.05% OPHTH 0.4 ML DROPERETTE BOTH EYES SCH (11:34)
--- NOTE | 2017-04-05 12:16 | P.GSCN ---
History of Present Illness Consult date: 04/05/17 Reason for Consult: liver mass Requesting physician: Devendra Lopez History of present illness: Reviewed NM RBC scan, and MRI liver, u/s abdomen. Internally reviewed. Disagree with initial readings, believe the liver mass to be vascular, likely hemangioma. Pancreatic cystic lesion, request surgical oncology evaluation prior to biopsy. Discussed with family at bedside Past Medical History Past Medical History: Hyperlipidemia, Hypertension Additional Past Medical History / Comment(s): past broken rt foot no sx just casted,polymyalgia, migraines in the past. "forgetfull at times",constipatin History of Any Multi-Drug Resistant Organisms: None Reported Past Surgical History: Hysterectomy Additional Past Surgical History / Comment(s): upper dental implants.recent sx on her gums, cosmetic sx face and eye lids, jasper cataracts, rt knee had fluid drained off of it Past Anesthesia/Blood Transfusion Reactions: No Reported Reaction Smoking Status: Never smoker - Past Family History Father Family Medical History: Myocardial Infarction ([place]) Mother Family Medical History: Dementia Additional Family Medical History / Comment(s): early onset alzhiemers Medications and Allergies Home Medications Medication Instructions Recorded Confirmed Type Ezetimibe [Zetia] 10 mg PO DAILY 04/02/17 04/02/17 History Irbesartan [Avapro] 150 mg PO DAILY 04/02/17 04/02/17 History Levothyroxine Sodium [Tirosint] 25 mcg PO DAILY 04/02/17 04/02/17 History Pravastatin Sodium [Pravachol] 80 mg PO HS 04/02/17 04/02/17 History cycloSPORINE 0.05% OPH SOLN 1 applicator BOTH EYES BID 04/02/17 04/02/17 History [Restasis] sitaGLIPtin PHOSPHATE [Januvia] 100 mg PO DAILY 04/02/17 04/02/17 History Allergies Allergy/AdvReac Type Severity Reaction Status Date / Time No Known Allergies Allergy Verified 04/02/17 09:41 Surgical - Exam Vital Signs Temp Pulse Resp BP Pulse Ox 97.5 F L 66 16 175/69 96 04/02/17 08:58 04/02/17 08:58 04/02/17 08:58 04/02/17 08:58 04/02/17 08:58 Results - Labs 04/02/17 09:33 04/02/17 09:33 Abnormal Lab Results - Last 24 Hours (Table) 04/02/17 04/04/17 Range/Units 09:33 06:44 Tumor Marker AFP 9.6 H (0.0-7.9) ng/mL CA 19-9 Antigen 114.6 H 99.5 H (0.0-34.9) U/mL
--- NOTE | 2017-04-05 12:20 | PN ---
Ms. Calderón is a 77-year-old female who is admitted to the hospital with syncopal episodes. An EKG showed right bundle branch block with left axis deviation. She did have some significant bradycardia during the night time with long pauses of more than 3 seconds with nonconductive P-wave. She is also noted to have pancreatic and liver masses which is felt to be malignant neoplasm. She is waiting to have a biopsy done. Has not had any significant progress since the first day. The pauses in the first day were about 4 seconds. At this point we are going to wait for the final diagnosis as far as the liver and pancreatic mass are concerned. Subsequently, they want to go to [facility] for further care. I am not proceeding with permanent pacemaker at this time. Will continue to monitor for any significant arrhythmias. PHYSICAL EXAMINATION: Reveals an elderly female who is alert, oriented, does not appear to be in acute distress. NECK: Supple. No JVD. LUNGS: Clear. HEART: Irregular. FINAL IMPRESSION: 1. Syncopal episode, could be secondary to bradyarrhythmias. Patient has underlying right bundle branch block and left axis deviation. There is some evidence of high degree atrioventricular block with pauses up to 4 seconds. 2. Pancreatic and liver mass. PLAN: I will await further workup. Will continue to monitor for any significant arrhythmias, especially associated with symptoms. Patient may pursue further care at [facility]. KWAN
--- NOTE | 2017-04-05 12:38 | PN ---
SUBJECTIVE: This is a 77-year-old white female with pancreatic mass with liver mass, awaiting Radiology needle biopsy in the morning by Dr. Feldman and then possible discharge home to follow up with the primary care physician in 2 to 3 days after Pathology is obtained. She is less dizzy, less nauseated with being off pain medications. She does not feel light-headed, dizzy at this time. Vital signs are stable. Medical care is reviewed including multiple questions about the liver biopsy, pancreatic biopsy, cancer, discussion in general with all family members including son and 2 daughters. Will await biopsy and then patient will be discharged home tomorrow. KWAN
[2017-04-05] MEDS: LINAGLIPTIN 5 MG TABLET PO SCH (12:49)
[2017-04-05] MEDS: EZETIMIBE 10 MG TAB PO SCH (12:49)
[2017-04-05] MEDS: LOSARTAN 50 MG TAB PO SCH (12:49)
[2017-04-05] MEDS: CHLORTHALIDONE 25 MG TAB PO SCH (12:49)
== END 2017-04-05 15:25 | disposition home or self-care (01) | DRG 309 ==
LOC: EC 08:57 → 5MS5E 12:02 → 5ONC 04-03 14:40
PROVIDERS: ADMIT Family Medicine; ATTEND Family Medicine
DX: I44.1 Atrioventricular block, second degree (principal); N39.0 Urinary tract infection, site not specified; C25.1 Malignant neoplasm of body of pancreas; C78.7 Secondary malignant neoplasm of liver and intrahepatic bile duct; I11.9 Hypertensive heart disease without heart failure; K86.9 Disease of pancreas, unspecified; R00.1 Bradycardia, unspecified; I45.10 Unspecified right bundle-branch block; E11.9 Type 2 diabetes mellitus without complications; E78.5 Hyperlipidemia, unspecified; Z79.84 Long term (current) use of oral hypoglycemic drugs; Z79.899 Other long term (current) drug therapy; Z90.710 Acquired absence of both cervix and uterus; Z98.42 Cataract extraction status, left eye; Z98.41 Cataract extraction status, right eye
CPT/HCPCS: 36415; 70450; 71020; 71275; 72125; 72128; 74183; 76700; 78206; 80053; 81001; 82105; 82550; 82553; 83690; 83735; 84100; 84443; 84484; 85025; 85379; 85610; 85730; 86301; 87086; 93005; 93306; 96361; 96374; 99285